=== PATIENT | female | born 1995 | race Caucasian/White ===

== ENCOUNTER 2021-04-05 22:38 | Emergency (ER) | payer OTHER ==
[~2021-04-05 22:38] MED LIST: IBUPROFEN800 MG PO; NORCO 5-325 TA1 EACH PO
== END 2021-04-06 00:37 | disposition home or self-care (01) ==
LOC: FER 22:38
DX: S97.81XA Crushing injury of right foot, initial encounter (principal); W23.0XXA Caught, crushed, jammed, or pinched between moving objects, initial encounter; Y92.830 Public park as the place of occurrence of the external cause; Z88.8 Allergy status to other drugs, medicaments and biological substances
CPT/HCPCS: 73610; 73630